=== PATIENT | female | born 1950 | race American Indian/Alaskan Native ===

== ENCOUNTER 2017-02-06 14:31 | Observation (INO) | payer OTHER ==
[2017-02-06 14:50] VITALS: BMI 24.7
[2017-02-06] MEDS ORDERED: Sodium Chloride 0.9% 1,000 ML IV ONE (15:12)
--- NOTE | 2017-02-06 15:12 | C.PDOC ---
History Of Present Illness 66 year old female, with a history of HTN and diabetes, presents to the ED with complaints of constant and heavy left sided chest pain beginning this morning with associated dizziness and sensation of "needles" to the left fingers. She notes pain radiates to left side of neck. Patient states she took a baby aspirin this morning and has experienced a less severe form of this chest pain once "a long time ago." She denies fever, shortness of breath, nausea, vomiting , or headache. (Ioana Lozada) History Per: Patient History/Exam Limitations: no limitations Onset/Duration Of Symptoms: Hrs Current Symptoms Are (Timing): Still Present Quality: Other (heavy) Recent travel outside of the [place]: No Time Seen by Provider: 02/06/17 15:03 Chief Complaint (Nursing): Chest Pain Past Medical History Reviewed: Historical Data, Nursing Documentation, Vital Signs - Medical History PMH: HTN Family History: States: Unknown Family Hx - Social History Hx Alcohol Use: No Hx Substance Use: No - Immunization History Hx Tetanus Toxoid Vaccination: No Hx Influenza Vaccination: No Hx Pneumococcal Vaccination: No ED Course And Treatment ECG: Interpreted By Me, Viewed By Me ECG Rhythm: Sinus Rhythm Rate From EC Disposition - Disposition Forms: [facility] (Maltese) - Scribe Statement The provider has reviewed the documentation as recorded by the Scribe - Scribe Statement Marie Mejia All medical record entries made by the Scribe were at my direction and personally dictated by me. I have reviewed the chart and agree that the record accurately reflects my personal performance of the history, physical exam, medical decision making, and the department course for this patient. I have also personally directed, reviewed, and agree with the discharge instructions and disposition. (Melissa Tucker)
--- NOTE | 2017-02-06 15:29 | C.PDOC ---
History Of Present Illness 66 year old female, with a history of HTN and diabetes, presents to the ED with complaints of constant and heavy left sided chest pain beginning this morning with associated dizziness and sensation of "needles" to the left fingers. She notes pain radiates to left side of neck and shoulder. Patient states she took a baby aspirin this morning and has experienced a less severe form of this chest pain once "a long time ago." She denies fever, shortness of breath, nausea , vomiting, or headache. CHINO Risk Score for UA/NSTEMI - CHINO Risk Score Age > 64: NO 3 or more CAD Risk Factors: YES Known CAD (Stenosis greater than 50%): NO Aspirin use in past 7 days: YES Severe Angina: NO EKG ST changes greater than 0.5mm: NO Positive Cardiac Marker: NO CHINO Score: 2 % risk at 14 days of: all cause mortality, new or recurrent NC, or severe recurrent ischemia requiring urgen revascularization: 8% Curb-65 Severity Score - CURB-65 Severity Score Confusion: No Bun >19mg/dl (>7mmol/L): No Respiratory Rate greater than/equal to 30: No Systolic BP <90 or Diastolic BP less than/equal 60mmHg: No Age >64: No Curb-65 Score: 0 Percentage 30-day mortality: 0.6% Time Seen by Provider: 02/06/17 15:03 Chief Complaint (Nursing): Chest Pain History Per: Patient History/Exam Limitations: no limitations Onset/Duration Of Symptoms: Hrs, Sudden Onset Current Symptoms Are (Timing): Still Present Quality: Other ("heavy" ) Associated Symptoms: Other (dizziness ) Modifying Factors: None Recent travel outside of the [place]: No Past Medical History Reviewed: Historical Data, Nursing Documentation, Vital Signs Vital Signs: Last Vital Signs Temp 98.2 F 02/06/17 16:14 Pulse 82 02/06/17 16:14 Resp 18 02/06/17 16:14 BP 128/84 02/06/17 16:14 Pulse Ox 98 02/06/17 16:14 - Medical History PMH: HTN Family History: States: Unknown Family Hx - Social History Hx Alcohol Use: No Hx Substance Use: No - Immunization History Hx Tetanus Toxoid Vaccination: No Hx Influenza Vaccination: No Hx Pneumococcal Vaccination: No Review Of Systems Constitutional: Negative for: Fever, Chills Cardiovascular: Positive for: Chest Pain. Negative for: Palpitations Respiratory: Negative for: Cough, Shortness of Breath Gastrointestinal: Negative for: Nausea, Vomiting, Abdominal Pain, Diarrhea Musculoskeletal: Positive for: Neck Pain (left sided neck pain radiating from chest pain ) Neurological: Positive for: Other ("needles" to left fingers ). Negative for: Weakness, Numbness, Headache Physical Exam - Physical Exam Appears: Non-toxic, No Acute Distress Skin: Warm, Dry Head: Atraumatic, Normacephalic Eye(s): bilateral: Normal Inspection, PERRL, EOMI Oral Mucosa: Moist Neck: Normal ROM, Supple Chest: Symmetrical, No Deformity, Tenderness (slight reproducable left sided tenderness ) Cardiovascular: Rhythm Regular Respiratory: Normal Breath Sounds, No Rales, No Rhonchi, No Wheezing Gastrointestinal/Abdominal: Soft, No Tenderness, No Distention, No Guarding, No Rebound Extremity: Bilateral: Atraumatic, No Pedal Edema, Normal Color And Temperature, Normal ROM Neurological/Psych: Oriented x3, Normal Speech, Normal Motor, Normal Sensation Gait: Steady ED Course And Treatment - Laboratory Results Result Diagrams: 02/06/17 15:33 02/06/17 15:33 Lab Interpretation: No Acute Changes ECG: Interpreted By Me, Viewed By Me ECG Rhythm: Sinus Rhythm Rate From EC - Radiology CXR: Viewed By Me, Read By Radiologist CXR Interpretation: Yes: Other (Blunting of the right hemidiaphragm may reflect small pleural effusion or pleural thickening.) Progress Note: EKG, CXR, UA, and blood work were ordered. Patient was given Ecotrin, Nitrostat, and IV fluids. Medical Decision Making Medical Decision Making: Impression: Chest pain Plan: * EKG * CXR * Labs Progress: EKG NS at 92 bpm with no ischemic changes CXR read by radiologist: Blunting of the right hemidiaphragm may reflect small pleural effusion or pleural thickening. Labs reviewed showing negative troponin and elevated lipids, no other acute findings 1629 On re-eval patient resting in bed and reports pain mostly improved. I explained results to patient and recommend observation admission to repeat labs. Patient seemed hesitant and asked I speak with daughter via cell phone. I spoke with her family member and patient then agrees with admission, [address] Sellers and discussed case; he agrees and accepts case for obs- tele admission. he requests contacting medical unit secretary [phone] Page medical unit secretary [phone] spoke with resident who will come to ED to evaluate patient Disposition - Disposition Disposition: HOSPITALIZED Disposition Time: 16:40 Condition: STABLE Forms: [facility] (Wolof) - POA Present On Arrival: None - Clinical Impression Clinical Impression: Chest pain - Scribe Statement The provider has reviewed the documentation as recorded by the Scribe Marie Mejia All medical record entries made by the Scribe were at my direction and personally dictated by me. I have reviewed the chart and agree that the record accurately reflects my personal performance of the history, physical exam, medical decision making, and the department course for this patient. I have also personally directed, reviewed, and agree with the discharge instructions and disposition. Decision To Admit - Pt Status Changed To: Hospital Disposition Of: Observation - . Bed Request Type: Telemetry Admitting Physician: James Sellers Jr. Patient Diagnosis: Chest pain
[2017-02-06 15:41] LABS: BASO # 0.1 K/uL (0.0-0.2); BASO % 0.7 % (0.0-2.0); EOS # 0.2 K/uL (0.0-0.7); EOS % 2.4 % (0.0-4.0); HEMATOCRIT 43.1 % (34.0-47.0); LYMPH # 3.1 K/uL (1.0-4.3); LYMPH % 30.3 % (20.0-40.0); MEAN CORPUSCULAR HEMOGLOBIN 30.7 pg (27.0-31.0); MEAN CORPUSCULAR HGB CONC 32.7 g/dL (33.0-37.0); MEAN PLATELET VOLUME 8.1 fL (7.2-11.7); MONO # 0.7 K/uL (0.0-0.8); MONO % 6.6 % (0.0-10.0); NRBC % 0.1 % (0.0-2.0); RED CELL DISTRIBUTION WIDTH 13.3 % (11.5-14.5); WHITE BLOOD COUNT 10.2 K/uL (4.8-10.8)
[2017-02-06] MEDS ORDERED: Sodium Chloride 0.9% 1,000 ML ONE (15:45)
--- NOTE | 2017-02-06 15:49 | RAD ---
HISTORY: chest pain COMPARISON: None available. TECHNIQUE: Chest PA and lateral FINDINGS: LUNGS: No focal consolidation. Please note that chest x-ray has limited sensitivity for the detection of pulmonary masses. PLEURA: Blunting of the right hemidiaphragm may reflect small pleural effusion or pleural thickening. No definite pneumothorax . CARDIOVASCULAR: Heart size appears within normal limits. Ectatic aorta. Dense atherosclerotic calcifications. OSSEOUS STRUCTURES: Degenerative changes of the spine and shoulders. VISUALIZED UPPER ABDOMEN: Unremarkable. OTHER FINDINGS: None. IMPRESSION: Blunting of the right hemidiaphragm may reflect small pleural effusion or pleural thickening.
[2017-02-06 16:08] LABS: ALB/GLOB RATIO 1.2 (1.0-2.1); ALKALINE PHOSPHATASE 122 U/L (38-126); ALT/SGPT 40 U/L (9-52); AST/SGOT 57 U/L (14-36); BLOOD UREA NITROGEN 15 mg/dL (7-17); CALCIUM 10.2 mg/dl (8.6-10.4); CARBON DIOXIDE 24 mmol/L (22-30); CHLORIDE 100 mmol/L (98-107); CHOLESTEROL 202 mg/dL (0-199); GFR AFRICAN-AMERICAN > 60; GLUCOSE,RANDOM 83 mg/dL (65-105); POTASSIUM 5.1 mmol/L (3.6-5.2); SODIUM 140 mmol/L (132-148); TOTAL PROTEIN 8.2 g/dL (6.3-8.3)
--- NOTE | 2017-02-06 16:40 | CP.PCM.HP ---
History of Present Illness - History of Present Illness History of Present Illness: CC: chest pain HPI: 66 year old female with past medical history significant for hypertension and diabetes presents with complaints of chest pain which started this morning upon arising from bed. Patient states that the pain was sharp and located in the center of the chest. It radiated up the left side of her neck. She denies radiation of pain down her arm but admits to paresthesias in her left hand. She states that the chest pain was not exacerbated by movements. She states that she took one aspirin and lay down. She then called her daughter who told her to go to the emergency room. She states that she had a similar presentation seven years prior where she again came to be evaluated in the emergency department. She is unsure of recent weight changes. She denies nausea, vomiting, loss of bowels, dyspnea, palpitations, headaches, urinary complaints or recent long distance travel. PMHx- DM, HTN PSHX- c/s x1, corrective eye surgery as a teenage ( unsure of the procedure) Fam Hx- DM- sister, HTN, father Meds: Norvasc 5 mg daily, Metformin 500 mg PO daily Social: Admits to smoking 7-8 cigarettes a day " for a long time". She quit 6 months ago; admits to social alcohol use, denies drug use. Works as a [employer] Allergies- Penicillin is noted in the medical record although patient denied when asked. Will need to confirm PMD: [place] [facility] Present on Admission - Present on Admission Any Indicators Present on Admission: No Review of Systems - Constitutional Constitutional: absent: Chills, Fever, Headache - EENT Eyes: absent: Change in Vision, Dry Eye Ears: absent: Ear Discharge, Ear Pain - Cardiovascular Cardiovascular: Chest Pain. absent: Diaphoresis, Dyspnea - Respiratory Respiratory: Dyspnea. absent: Cough, Dyspnea on Exertion - Gastrointestinal Gastrointestinal: absent: Abdominal Pain, Nausea, Vomiting - Genitourinary Genitourinary: absent: Change in Urinary Stream, Difficulty Urinating - Musculoskeletal Musculoskeletal: absent: Atrophy, Back Pain - Integumentary Integumentary: absent: Dry Skin - Neurological Neurological: absent: Abnormal Gait, Abnormal Hearing - Hematologic/Lymphatic Hematologic: absent: Easy Bleeding, Easy Bruising Past Patient History - Past Social History Smoking Status: Former Smoker Alcohol: Social Drugs: Denies Home Situation {Lives}: Alone - CARDIAC Hx Hypertension: Yes - ENDOCRINE/METABOLIC Hx Diabetes Mellitus Type 2: Yes - PSYCHIATRIC Hx Substance Use: No - SURGICAL HISTORY Hx Surgeries: Yes Hx Section: Yes - ANESTHESIA Hx Anesthesia: Yes Hx Anesthesia Reactions: No Meds Allergies/Adverse Reactions: Allergies Allergy/AdvReac Type Severity Reaction Status Date / Time Penicillins Allergy Severe SWELLING Verified 02/06/17 14:48 Physical Exam - Constitutional Appears: Non-toxic, No Acute Distress - Head Exam Head Exam: ATRAUMATIC, NORMAL INSPECTION, NORMOCEPHALIC - Eye Exam Eye Exam: EOMI, Normal appearance, PERRL Pupil Exam: NORMAL ACCOMODATION Additional comments: periorbital darkening with minimal lateral swelling - ENT Exam ENT Exam: Mucous Membranes Moist - Neck Exam Neck exam: Positive for: Full Rom - Respiratory Exam Respiratory Exam: NORMAL BREATHING PATTERN. absent: Wheezes - Cardiovascular Exam Cardiovascular Exam: +S1, +S2 - GI/Abdominal Exam GI & Abdominal Exam: Normal Bowel Sounds, Soft. absent: Tenderness - Extremities Exam Extremities exam: Positive for: full ROM, normal capillary refill, pedal pulses present. Negative for: pedal edema - Back Exam Back exam: FULL ROM - Neurological Exam Neurological exam: Alert, CN II-XII Intact, Oriented x3, Reflexes Normal Additional comments: finer to nose test intact, sensation intact - Psychiatric Exam Psychiatric exam: Normal Affect, Normal Mood - Skin Skin Exam: Dry, Warm Results - Vital Signs Recent Vital Signs: Last Vital Signs Temp 98.2 F 02/06/17 16:14 Pulse 82 02/06/17 16:14 Resp 18 02/06/17 16:14 BP 128/84 02/06/17 16:14 Pulse Ox 98 02/06/17 16:14 - Labs Result Diagrams: 02/06/17 15:33 02/06/17 15:33 Labs: Laboratory Results - last 24 hr 02/06/17 02/06/17 02/06/17 15:33 15:33 15:33 WBC 10.2 RBC 4.59 Hgb 14.1 Hct 43.1 MCV 94.0 MCH 30.7 MCHC 32.7 L RDW 13.3 Plt Count 235 MPV 8.1 Neut % (Auto) 60.0 Lymph % (Auto) 30.3 [place] % (Auto) 6.6 Eos % (Auto) 2.4 Baso % (Auto) 0.7 Neut # 6.1 Lymph # 3.1 [place] # 0.7 Eos # 0.2 Baso # 0.1 PT 11.5 INR 1.0 APTT 30 Sodium 140 Potassium 5.1 Chloride 100 Carbon Dioxide 24 Anion Gap 21 H BUN 15 Creatinine 0.5 L Est GFR ( Amer) > 60 Est GFR (Non-Af Amer) > 60 Random Glucose 83 Calcium 10.2 Total Bilirubin 1.0 AST 57 H ALT 40 Alkaline Phosphatase 122 Total Creatine Kinase 138 H CK-MB (Mass) 1.76 Troponin I, Quant < 0.0120 NT-Pro-B Natriuret Pep 37.5 Total Protein 8.2 Albumin 4.4 Globulin 3.8 Albumin/Globulin Ratio 1.2 Triglycerides 116 Cholesterol 202 H LDL Cholesterol Direct 108 HDL Cholesterol 94 H Assessment & Plan (1) Chest pain Assessment and Plan: EKG NSR. Initial Troponin negative F/U ROMY 2-3 with EKGs F/U EKG, ECHO, AM labs, Thyroid studies, Lipid panel Consult to Cardiology Dr. Huston- F/U recommendations. Stress test in the AM Patient take 81 mg earlier. Will begin 244 more mg for a complete dose of 325 mg. Low dose Zestril and Crestor added on. Metoprolol Tartrate 25 mg PO BID added on Status: Acute (2) HTN (hypertension) Assessment and Plan: Norvasc 5 mg Po daily Continue to monitor Status: Acute (3) Diabetes mellitus Assessment and Plan: Accuchekcs ISS at this time- Low dose since patient has not eaten all day F/U A1c Status: Acute (4) Prophylactic measure Assessment and Plan: Heparin SC Q12 SCDs Pepcid 20 mg PO BID Status: Acute
[2017-02-06 18:56] LABS: RBC URINE 4 /hpf (0-3); URINE BACTERIA RARE (<OCC); URINE BILIRUBIN NEGATIVE (NEGATIVE); URINE BLOOD 1+ (NEGATIVE); URINE COLOR Yellow (YELLOW); URINE GLUCOSE (UA) NORMAL (Normal); URINE KETONE 1+ mg/dL (NEGATIVE); URINE LEUKOCYTE ESTERASE NEG Leu/uL (Negative); URINE PROTEIN NEGATIVE (NEGATIVE); URINE UROBILINOGEN NORMAL mg/dL (0.2-1.0); WBC URINE < 1 /hpf (0-5)
[2017-02-06] MEDS: (Novolog) Insulin Aspart, Recombinant 100 u/ml 10 ml vial SC SCH (21:26)
--- NOTE | 2017-02-07 00:06 | CP.PCM.CON ---
History of Present Illness - History of Present Illness History of Present Illness: CC: chest pain HPI: 66 year old female with past medical history significant for hypertension and diabetes presents with complaints of chest pain which started this morning upon arising from bed. Patient states that the pain was sharp and located in the center of the chest. It radiated up the left side of her neck. She denies radiation of pain down her arm but admits to paresthesias in her left hand. She states that the chest pain was not exacerbated by movements. She states that she took one aspirin and lay down. She then called her daughter who told her to go to the emergency room. She states that she had a similar presentation seven years prior where she again came to be evaluated in the emergency department. She is unsure of recent weight changes. She denies nausea, vomiting, loss of bowels, dyspnea, palpitations, headaches, urinary complaints or recent long distance travel. PMHx- DM, HTN PSHX- c/s x1, corrective eye surgery as a teenage ( unsure of the procedure) Fam Hx- DM- sister, HTN, father Meds: Norvasc 5 mg daily, Metformin 500 mg PO daily Social: Admits to smoking 7-8 cigarettes a day " for a long time". She quit 6 months ago; admits to social alcohol use, denies drug use. Works as a [employer] Allergies- Penicillin is noted in the medical record although patient denied when asked. Will need to confirm PMD: [place] group Present on Admission - Present on Admission Any Indicators Present on Admission: No Review of Systems - Constitutional Constitutional: absent: Chills, Fever, Headache - EENT Eyes: absent: Change in Vision, Dry Eye Ears: absent: Ear Discharge, Ear Pain - Cardiovascular Cardiovascular: Chest Pain. absent: Diaphoresis, Dyspnea - Respiratory Respiratory: Dyspnea. absent: Cough, Dyspnea on Exertion - Gastrointestinal Gastrointestinal: absent: Abdominal Pain, Nausea, Vomiting - Genitourinary Genitourinary: absent: Change in Urinary Stream, Difficulty Urinating - Musculoskeletal Musculoskeletal: absent: Atrophy, Back Pain - Integumentary Integumentary: absent: Dry Skin - Neurological Neurological: absent: Abnormal Gait, Abnormal Hearing - Hematologic/Lymphatic Hematologic: absent: Easy Bleeding, Easy Bruising Physical Exam - Constitutional Appears: Non-toxic, No Acute Distress - Head Exam Head Exam: ATRAUMATIC, NORMAL INSPECTION, NORMOCEPHALIC - Eye Exam Eye Exam: EOMI, Normal appearance, PERRL Pupil Exam: NORMAL ACCOMODATION Additional comments: periorbital darkening with minimal lateral swelling - ENT Exam ENT Exam: Mucous Membranes Moist - Neck Exam Neck exam: Positive for: Full Rom - Respiratory Exam Respiratory Exam: NORMAL BREATHING PATTERN. absent: Wheezes - Cardiovascular Exam Cardiovascular Exam: +S1, +S2 - GI/Abdominal Exam GI & Abdominal Exam: Normal Bowel Sounds, Soft. absent: Tenderness - Extremities Exam Extremities exam: Positive for: full ROM, normal capillary refill, pedal pulses present. Negative for: pedal edema - Back Exam Back exam: FULL ROM - Neurological Exam Neurological exam: Alert, CN II-XII Intact, Oriented x3, Reflexes Normal Additional comments: finer to nose test intact, sensation intact - Psychiatric Exam Psychiatric exam: Normal Affect, Normal Mood - Skin Skin Exam: Dry, Warm Past Patient History - Past Medical History & Family History Past Medical History?: Yes - Past Social History Smoking Status: Former Smoker - CARDIAC Hx Cardiac Disorders: Yes Hx Hypertension: Yes - PULMONARY Hx Respiratory Disorders: No - NEUROLOGICAL Hx Neurological Disorder: No - HEENT Hx HEENT Problems: No - RENAL Hx Chronic Kidney Disease: No - ENDOCRINE/METABOLIC Hx Endocrine Disorders: Yes Hx Diabetes Mellitus Type 2: Yes - HEMATOLOGICAL/ONCOLOGICAL Hx Blood Disorders: No - INTEGUMENTARY Hx Dermatological Problems: No - MUSCULOSKELETAL/RHEUMATOLOGICAL Hx Musculoskeletal Disorders: No Hx Falls: Yes ("couple of months ago") - GASTROINTESTINAL Hx Gastrointestinal Disorders: No - GENITOURINARY/GYNECOLOGICAL Hx Genitourinary Disorders: No - PSYCHIATRIC Hx Psychophysiologic Disorder: No Hx Substance Use: No - SURGICAL HISTORY Hx Surgeries: Yes Hx Section: Yes Hx Eye Surgery: Yes (left eye when a teenager) - ANESTHESIA Hx Anesthesia: Yes Hx Anesthesia Reactions: No Hx Malignant Hyperthermia: No Has any member of the family had a problem w/ anesthesia?: No Meds Home Medications: Home Medication List Medication Instructions Recorded Confirmed Type Aspirin [Ecotrin] 244 mg PO STAT 02/07/17 Rx Lisinopril [Zestril] 2.5 mg PO DAILY #30 tab 02/07/17 Rx Metoprolol Tartrate [Lopressor] 25 mg PO BID #60 tab 02/07/17 Rx Rosuvastatin Calcium [Crestor] 5 mg PO HS #30 tab 02/07/17 Rx Allergies/Adverse Reactions: Allergies Allergy/AdvReac Type Severity Reaction Status Date / Time Penicillins Allergy Severe SWELLING Verified 02/06/17 14:48 - Medications Medications: Current Medications Amlodipine Besylate (Norvasc) 5 mg PO DAILY [facility] Famotidine (Pepcid) 20 mg PO BID [facility] Sodium Chloride (Sodium Chloride 0.9%) 1,000 mls @ 100 mls/hr IV .Q10H ONE Stop: 02/07/17 01:11 Last Admin: 02/06/17 15:45 Dose: 100 mls/hr Insulin Aspart (Novolog) 0 unit SC ACHS [facility] PRN Reason: Protocol Last Admin: 02/06/17 21:26 Dose: Not Given Lisinopril (Zestril) 2.5 mg PO DAILY [facility] Metoprolol Tartrate (Lopressor) 25 mg PO BID [facility] Rosuvastatin Calcium (Crestor) 5 mg PO HS [facility] Last Admin: 02/06/17 21:26 Dose: 5 mg Results - Vital Signs Recent Vital Signs: Last Vital Signs Temp 98.5 F 02/06/17 20:36 Pulse 80 02/06/17 22:23 Resp 18 02/06/17 20:36 BP 126/88 02/06/17 21:57 Pulse Ox 97 02/06/17 20:36 - Labs Result Diagrams: 02/07/17 06:18 02/07/17 06:18 Labs: Laboratory Results - last 24 hr 02/06/17 02/06/17 02/06/17 18:44 21:09 22:25 POC Glucose (mg/dL) 98 Total Creatine Kinase 134 CK-MB (Mass) 1.64 Troponin I, Quant < 0.0120 Urine Color Yellow Urine Clarity Clear Urine pH 7.0 Ur Specific [place] 1.015 Urine Protein Negative Urine Glucose (UA) Normal Urine Ketones 1+ H Urine Blood 1+ H Urine Nitrate Negative Urine Bilirubin Negative Urine Urobilinogen Normal Ur Leukocyte Esterase Neg Urine WBC (Auto) < 1 Urine RBC (Auto) 4 H Ur Squamous Epith Cells 1 Urine Bacteria Rare Assessment & Plan - Assessment and Plan (Free Text) Assessment: Assessment & Plan (1) Chest pain Assessment and Plan: EKG NSR. Initial Troponin negative F/U ROMY 2-3 with EKGs F/U EKG, ECHO, AM labs, Thyroid studies, Lipid panel Patient take 81 mg earlier. Will begin 244 more mg for a complete dose of 325 mg. Low dose Zestril and Crestor added on. Metoprolol Tartrate 25 mg PO BID added on Status: Acute For stress test in am (2) HTN (hypertension) Assessment and Plan: Norvasc 5 mg Po daily Continue to monitor Status: Acute (3) Diabetes mellitus Assessment and Plan: Accuchekcs ISS at this time- Low dose since patient has not eaten all day F/U A1c Status: Acute (4) Prophylactic measure Assessment and Plan: Heparin SC Q12 SCDs Pepcid 20 mg PO BID Status: Acute
[2017-02-07 00:17] VITALS: RESP 20
[2017-02-07 06:13] VITALS: O2SAT 98
[2017-02-07 06:37] LABS: BASO # 0.1 K/uL (0.0-0.2); BASO % 0.7 % (0.0-2.0); EOS # 0.2 K/uL (0.0-0.7); EOS % 3.1 % (0.0-4.0); HEMATOCRIT 40.5 % (34.0-47.0); LYMPH # 3.6 K/uL (1.0-4.3); LYMPH % 48.7 % (20.0-40.0); MEAN CELL VOLUME 93.2 fL (81.0-99.0); MEAN CORPUSCULAR HEMOGLOBIN 30.8 pg (27.0-31.0); MEAN CORPUSCULAR HGB CONC 33.1 g/dL (33.0-37.0); MEAN PLATELET VOLUME 8.8 fL (7.2-11.7); MONO # 0.5 K/uL (0.0-0.8); MONO % 6.4 % (0.0-10.0); NRBC % 0.1 % (0.0-2.0); RED CELL DISTRIBUTION WIDTH 13.4 % (11.5-14.5); WHITE BLOOD COUNT 7.5 K/uL (4.8-10.8)
[2017-02-07 07:26] LABS: CHLORIDE 104 mmol/L (98-107); POTASSIUM 3.9 mmol/L (3.6-5.2); SODIUM 137 mmol/L (132-148)
[2017-02-07 07:28] LABS: ALB/GLOB RATIO 1.3 (1.0-2.1); BILIRUBIN,TOTAL 0.9 mg/dL (0.2-1.3); CARBON DIOXIDE 23 mmol/L (22-30); CHOLESTEROL 193 mg/dL (0-199); GFR AFRICAN-AMERICAN > 60; TOTAL PROTEIN 7.1 g/dL (6.3-8.3)
[2017-02-07 07:29] LABS: ALKALINE PHOSPHATASE 93 U/L (38-126); ALT/SGPT 35 U/L (9-52); AST/SGOT 37 U/L (14-36); BLOOD UREA NITROGEN 15 mg/dL (7-17); CALCIUM 9.2 mg/dl (8.6-10.4); GLUCOSE,RANDOM 85 mg/dL (65-105); MAGNESIUM 1.8 mg/dL (1.6-2.3)
[2017-02-07] MEDS: (Novolog) Insulin Aspart, Recombinant 100 u/ml 10 ml vial SC SCH ×3 (08:10→16:45)
[2017-02-07 16:11] VITALS: PULSE 62; TEMP 98.4
[2017-02-07 17:43] VITALS: BP 137/88
[2017-02-07] MEDS ORDERED: Pneumococcal 23-Valent Vaccine IM ONE (18:00)
--- NOTE | 2017-02-07 19:01 | CP.PCM.DIS ---
Provider - Provider Date of Admission: 02/06/17 16:40 Attending physician: James Sellers Jr, MD Consults: Dr. Huston (cardio) Time Spent in preparation of Discharge (in minutes): 45 Diagnosis - Discharge Diagnosis (1) Chest pain Status: Acute Comment: please see discharge summary (2) Diabetes mellitus Status: Acute Comment: please see discharge summary (3) HTN (hypertension) Status: Acute Comment: please see discharge summary Hospital Course - Lab Results Lab Results: Most Recent Lab Values WBC 7.5 K/uL (4.8-10.8) 02/07/17 06:18 RBC 4.34 Mil/uL (3.80-5.20) 02/07/17 06:18 Hgb 13.4 g/dL (11.0-16.0) 02/07/17 06:18 Hct 40.5 % (34.0-47.0) 02/07/17 06:18 MCV 93.2 fL (81.0-99.0) 02/07/17 06:18 MCH 30.8 pg (27.0-31.0) 02/07/17 06:18 MCHC 33.1 g/dL (33.0-37.0) 02/07/17 06:18 RDW 13.4 % (11.5-14.5) 02/07/17 06:18 Plt Count 211 K/uL (130-400) 02/07/17 06:18 MPV 8.8 fL (7.2-11.7) 02/07/17 06:18 Neut % (Auto) 41.1 % (50.0-75.0) L 02/07/17 06:18 Lymph % (Auto) 48.7 % (20.0-40.0) H 02/07/17 06:18 Crowley % (Auto) 6.4 % (0.0-10.0) 02/07/17 06:18 Eos % (Auto) 3.1 % (0.0-4.0) 02/07/17 06:18 Baso % (Auto) 0.7 % (0.0-2.0) 02/07/17 06:18 Neut # 3.1 K/uL (1.8-7.0) 02/07/17 06:18 Lymph # 3.6 K/uL (1.0-4.3) 02/07/17 06:18 Crowley # 0.5 K/uL (0.0-0.8) 02/07/17 06:18 Eos # 0.2 K/uL (0.0-0.7) 02/07/17 06:18 Baso # 0.1 K/uL (0.0-0.2) 02/07/17 06:18 PT 11.0 SECONDS (9.7-12.2) 02/07/17 06:18 INR 1.0 02/07/17 06:18 APTT 30 SECONDS (21-34) 02/07/17 06:18 Sodium 137 mmol/L (132-148) 02/07/17 06:18 Potassium 3.9 mmol/L (3.6-5.2) 02/07/17 06:18 Chloride 104 mmol/L (98-107) 02/07/17 06:18 Carbon Dioxide 23 mmol/L (22-30) 02/07/17 06:18 Anion Gap 14 (10-20) 02/07/17 06:18 BUN 15 mg/dL (7-17) 02/07/17 06:18 Creatinine 0.6 MG/DL (0.7-1.2) L 02/07/17 06:18 Est GFR ( Amer) > 60 02/07/17 06:18 Est GFR (Non-Af Amer) > 60 02/07/17 06:18 POC Glucose (mg/dL) 130 mg/dL (65-110) H 02/07/17 16:03 Random Glucose 85 mg/dL (65-105) 02/07/17 06:18 Hemoglobin A1c 6.1 % (4.2-6.5) 02/07/17 06:18 Calcium 9.2 mg/dl (8.6-10.4) 02/07/17 06:18 Phosphorus 4.0 mg/dL (2.5-4.5) 02/07/17 06:18 Magnesium 1.8 mg/dL (1.6-2.3) 02/07/17 06:18 Total Bilirubin 0.9 mg/dL (0.2-1.3) 02/07/17 06:18 AST 37 U/L (14-36) H D 09/06/17 06:18 ALT 35 U/L (9-52) 02/07/17 06:18 Alkaline Phosphatase 93 U/L (38-126) 02/07/17 06:18 Total Creatine Kinase 127 U/L (30-135) 02/07/17 03:21 CK-MB (Mass) 1.22 ng/mL (0.0-3.38) 02/07/17 03:21 Troponin I, Quant < 0.0120 ng/mL (0.00-0.120) 02/07/17 03:21 NT-Pro-B Natriuret Pep 37.5 pg/mL (0-900) 02/06/17 15:33 Total Protein 7.1 g/dL (6.3-8.3) 02/07/17 06:18 Albumin 4.0 g/dL (3.5-5.0) 02/07/17 06:18 Globulin 3.1 gm/dL (2.2-3.9) 02/07/17 06:18 Albumin/Globulin Ratio 1.3 (1.0-2.1) 02/07/17 06:18 Triglycerides 92 mg/dL (0-149) D 02/07/17 06:18 Cholesterol 193 mg/dL (0-199) 02/07/17 06:18 LDL Cholesterol Direct 105 mg/dL (0-129) 02/07/17 06:18 HDL Cholesterol 81 mg/dL (30-70) H 02/07/17 06:18 Free T4 1.09 ng/dL (0.78-2.19) 02/07/17 06:18 TSH 3rd Generation 3.00 mIU/L (0.46-4.68) 02/07/17 06:18 Urine Color Yellow (YELLOW) 02/06/17 18:44 Urine Clarity Clear (Clear) 02/06/17 18:44 Urine pH 7.0 (5.0-8.0) 02/06/17 18:44 Ur Specific Hustle 1.015 (1.003-1.030) 02/06/17 18:44 Urine Protein Negative mg/dL (NEGATIVE) 02/06/17 18:44 Urine Glucose (UA) Normal mg/dL (Normal) 02/06/17 18:44 Urine Ketones 1+ mg/dL (NEGATIVE) H 02/06/17 18:44 Urine Blood 1+ (NEGATIVE) H 02/06/17 18:44 Urine Nitrate Negative (NEGATIVE) 02/06/17 18:44 Urine Bilirubin Negative (NEGATIVE) 02/06/17 18:44 Urine Urobilinogen Normal mg/dL (0.2-1.0) 02/06/17 18:44 Ur Leukocyte Esterase Neg Cindy/uL (Negative) 02/06/17 18:44 Urine WBC (Auto) < 1 /hpf (0-5) 02/06/17 18:44 Urine RBC (Auto) 4 /hpf (0-3) H 02/06/17 18:44 Ur Squamous Epith Cells 1 /hpf (0-5) 02/06/17 18:44 Urine Bacteria Rare (<OCC) 02/06/17 18:44 - Hospital Course Hospital Course: "CC: chest pain HPI: 66 year old female with past medical history significant for hypertension and diabetes presents with complaints of chest pain which started this morning upon arising from bed. Patient states that the pain was sharp and located in the center of the chest. It radiated up the left side of her neck. She denies radiation of pain down her arm but admits to paresthesias in her left hand. She states that the chest pain was not exacerbated by movements. She states that she took one aspirin and lay down. She then called her daughter who told her to go to the emergency room. She states that she had a similar presentation seven years prior where she again came to be evaluated in the emergency department. She is unsure of recent weight changes. She denies nausea, vomiting, loss of bowels, dyspnea, palpitations, headaches, urinary complaints or recent long distance travel." Patient admitted for rule out AL. EKGs NSR. Troponins and CK-MB negative x 3. Stress test and echo were done with Dr. Huston,results pending, patient to follow up with PMD. 325 mg of aspirin given. Low dose Zestril, Crestor, Metoprolol Tartrate 25 mg PO BID given. HTN: managed with Norvasc 5 mg and Metoprolol. Blood pressure stable. T4: 1.09, TSH 3.0 Diabetes:patient managed [facility] [place] Accuchecks and ISS at this time- Low dose, HgA1C- 6.1, Triglycerides: 92, Cholesterol 193, LDL 105, HDL 81 Prophylaxis: Patient given Heparin SC Q12, SCDs, and Pepcid 20 mg PO BID. Patient no longer having chest pain. Blood pressure well controlled. Patient stable for discharge as per Dr. Sellers. This is a summary of the patient's hospital course. Please see chart for full details. Discharge Exam - Head Exam Head Exam: ATRAUMATIC, NORMAL INSPECTION, NORMOCEPHALIC - Eye Exam Eye Exam: EOMI, Normal appearance, PERRL - ENT Exam ENT Exam: Mucous Membranes Moist - Neck Exam Neck exam: Full Rom - Respiratory Exam Respiratory Exam: Clear to PA & Lateral, NORMAL BREATHING PATTERN, UNREMARKABLE - Cardiovascular Exam Cardiovascular Exam: REGULAR RHYTHM, RRR - GI/Abdominal Exam GI & Abdominal Exam: Normal Bowel Sounds, Unremarkable - Extremities Exam Extremities exam: full ROM - Neurological Exam Neurological exam: Alert, Oriented x3 - Psychiatric Exam Psychiatric exam: Normal Affect, Normal Mood - Skin Skin Exam: Intact, Normal Color, Warm Discharge Plan - Discharge Medications Prescriptions: Lisinopril [Zestril] 2.5 mg PO DAILY #30 tab Metoprolol Tartrate [Lopressor] 25 mg PO BID #60 tab Rosuvastatin Calcium [Crestor] 5 mg PO HS #30 tab - Follow Up Plan Condition: STABLE Disposition: HOME/ ROUTINE Instructions: Metoprolol (By mouth), Lisinopril (By mouth), Rosuvastatin (By mouth), Chest Pain (DC), Heart Healthy Diet (DC) Additional Instructions: Patient stable for discharge as per Dr. Sellers. Patient to continue taking home medications and start taking Lisinopril 2.5 mg daily, metoprolol 25mg twice a day, and Crestor 5mg at night. Patient to follow up with primary care doctor within 2 weeks. Patient should return immediately to emergency room if symptoms return. Patient explained instructions who understands and agrees. Referrals: Lam Huston MD [Staff Provider] - Dee Ramos MD [Medical Doctor] -
--- NOTE | 2017-02-08 17:54 | CARD ---
APPROVED REPORT EKG Measurement Heart [id number] [place] [id number] <Conclusion> Normal sinus rhythm Normal ECG
--- NOTE | 2017-02-08 18:00 | CARD ---
APPROVED REPORT EKG Measurement Heart [id number] [place] 142P67 [id number] <Conclusion> Sinus rhythm with premature atrial complexes Possible Left atrial enlargement Borderline ECG
--- NOTE | 2017-02-08 18:18 | CARD ---
APPROVED REPORT EKG Measurement Heart [id number] [place] 136P67 [id number] <Conclusion> Normal sinus rhythm Right atrial enlargement Borderline ECG
--- NOTE | 2017-02-11 10:33 | CARD ---
APPROVED REPORT Protocol: LINDA Test Type: Stress Nuclear Test Indications: CHEST PAIN Medications: LIST SCAN Medical History: CHEST PAIN Target HR: 166 bpm Resting ECG: Normal Resting Heart Rate: 88 bpm Resting Blood Pressure: 118/60mmHg submaximum (85%): 141 bpm TEST SUMMARY [id number]:01..1.081/.0. PRETESTWARM-UP17:[id number]/60.0. MANUALSTAGE 301:[id number]/66.0. [id number]/68.0. POST EXERCISE Reason for Termination: Target heart rate achieved Target HR: No Max HR: 137 bpm 84% of Maximum Predicted HR: 166 bpm Exercise duration: 07:31 min:sec, 0 Stage Exercise capacity: 7.7METs Max Blood Pressure: 188/68mmHg Blood Pressure response to exercise: Appropriate Heart Rate response to exercise: Appropriate Chest Pain: No, none Angina index: 0 Arrhythmia: Yes, ventricular premature beats-isolated ST Change: No, none Deviation: 0 mm INTERPRETATION Stress EKG Conclusion: nuclear image to follow up EXAM: Myocardial Perfusion STRESS/REST Imaging Protocol The imaging protocol used to acquire images was Stress Tc-99m/rest Tc-99m 1 day Rest Spect myocardial perfusion imaging was performed in supine position 45 minutes following the injection of 32.2 mCi of Tc-99 Myoview. Gated Stress Spect was performed 45 minutes after intravenous 12.8 mCi Tc-99 Myoview injection. The images were gated to evaluate regional wall motion and calculate ventricular ejection fraction.Images were reconstructed using backfilter projection method in short horizontal and verticle long axis. Spect slices were generated. RESTING DATA EDV40.00ml ESV9.00mlMyocardial Mass87.00g EF78.00% STRESS DATA EDV33.00ml ESV6.00mlMyocardial Mass75.00g EF82.00% Regional WT score at stress:1.00 Regional WM score at stress:0.00 Summed WT score at stress:5.00 Summed WM score at stress:0.00 LV Perf. Quant 17 Seg. SSS0.00 17 Seg. SRS0.00 17 Seg. SDS0.00 Stress Defect Extent (% LAD)0.00Rest Defect Extent (% LAD)0.00Rev. Defect Extent (% LAD)0.00 Stress Defect Extent (% LCX)0.00Rest Defect Extent (% LCX)0.00Rev. Defect Extent (% LCX)0.00 Stress Defect Extent (% RCA)0.00Rest Defect Extent (% RCA)0.00Rev. Defect Extent (% RCA)0.00 Stress Defect Extent (% SUDHIR)0.00Rest Defect Extent (% SUDHIR)0.00Rev. Defect Extent (% SUDHIR)0.00 Other Information Quality:Good IMPRESSION Normal Myocardial Perfusion exercise stress study Left Ventricle LV Function:Left ventricle systolic function is normal. The Ejection Fraction is >70%. Conclusion 1. Normal Lexiscan nuclear stress test. Normal EF.
--- NOTE | 2017-02-11 11:15 | CARD ---
APPROVED REPORT EXAM: Two-dimensional and M-mode echocardiogram with Doppler and color Doppler. Other Information Quality : GoodRhythm : NSR INDICATION Chest Pain RISK FACTORS Hypertension Diabetes 2D DIMENSIONS IVSd0.8 (0.7-1.1cm)LVDd3.5 (3.9-5.9cm) PWd0.9 (0.7-1.1cm)LVDs2.5 (2.5-4.0cm) FS (%) 27.3 %LVEF (%)54.2 (>50%) M-Mode DIMENSIONS Left Atrium (MM)3.06 (2.5-4.0cm)IVSd1.14 (0.7-1.1cm) Aortic Root2.70 (2.2-3.7cm)LVDd4.16 (4.0-5.6cm) Aortic Cusp Exc.1.95 (1.5-2.0cm)PWd0.91 (0.7-1.1cm) FS (%) 45 %LVDs2.28 (2.0-3.8cm) LVEF (%)77 (>50%) Mitral Valve MV E Wazccneh90.0cm/sMV A Rjtjnzaa65.8cm/sE/A ratio0.8 TDI E/Lateral E'0.0E/Medial E'0.0 Tricuspid Valve TR Peak [id number]/sTR Peak Gr.[id number] <Conclusion> Left ventricle: thickness: normal; size: normal; overall ejection fraction: 65%: diastolic filling pressures: normal Mitral valve: annulus: normal: leaflets: normal: excursion: normal; no significant trans-mitral gradient: no significant incompetence: left atrium: normal Aortic valve: leaflets: normal: excursion: normal; no significant trans-aortic gradient: No significant incompetence: aortic root: normal Right sided Structures: Pulmonary valve: normal; no significant incompetence; Tricuspid valve: normal; no significant incompetence: Intra-cardiac hemodynamics: pulmonary systolic pressures: normal; central venous pressures: normal No pericardial effusion
== END 2017-02-07 18:35 | disposition home or self-care (01) ==
LOC: C.ER 14:31 → C.9E 16:40 → C.6T 19:16
PROVIDERS: ADMIT Internal Medicine; ATTEND Internal Medicine
DX: R07.9 Chest pain, unspecified (principal); E11.9 Type 2 diabetes mellitus without complications; I10 Essential (primary) hypertension
CPT/HCPCS: 36415; 71020; 80053; 80061; 81001; 82948; 83036; 83735; 83880; 84100; 84439; 84443; 84484; 85025; 85610; 85730; 93306; 99285; G0378; J1644; J7040